=== PATIENT | female | born 1965 | race Caucasian/White ===

== ENCOUNTER 2024-07-03 05:08 | Inpatient (IN) | payer OTHER, SELFPAY ==
[2024-07-02 23:54] VITALS: BP 139/86
[2024-07-03] VITALS (12 sets, daily range): BP systolic 106–150; BP diastolic 61–94; BMI 42.2
--- NOTE | 2024-07-03 02:12 | ED.GENMED ---
Addendum entered and electronically signed by Alan Ng DO 07/05/24 09:28:
30 minutes critical care time
Original Note:
History of Present Illness
General
Chief Complaint: Breathing Problem
Source: patient
Exam Limitations: none
Time Seen by Provider: 07/03/24 01:11
Nursing documentation reviewed up to this point in time: agreed with
History of Present Illness
History of Present Illness:
59-year-old female presents with a week or 2 of shortness of breath palpitations history on exertion no chest pain no fever chills no calf pain she suffers from fibromyalgia, chronic pain at the iliotibial band, she uses marijuana, muscle relaxants,
NSAIDs as needed and Vicodin, nondrinker non-smoker her mother has A-fib patient states she lives a somewhat sedentary life, she homeschools her grandchildren, does a lot of housework, she does take hormonal therapies estrogen and progesterone
Past History
Past History
ED Past Medical History: Other (Fibromyalgia chronic pain of the iliotibial band)
ED Past Surgical History: Cholecystectomy
Social History
Tobacco: Non-smoker
Alcohol: None
Drug: Marijuana
Personal:
Living: with family
Employment: Employed
Family History
Family History: Other (Mother with arrhythmia)
Review of Systems
Review of Systems
All Other Systems: Not applicable
Constitutional: Denies fever or fatigue
EENT: Reports no symptoms
Respiratory: Reports trouble breathing; Denies cough
Cardiac: Reports palpitations; Denies chest pain or diaphoresis
ABD/GI: Reports no symptoms
: Reports no symptoms
Skin: Reports no symptoms
Neurological: Reports no symptoms
Endocrine: Reports no symptoms
Hematologic/Lymphatic: Reports no symptoms
Phy Exam
Physical Exam
Physical Exam:
Physical Exam
General: no apparent distress, not acutely ill
Neck: No jaundice
Heart: Regular
Lungs: no acute respiratory distress. clear bilaterally
Abdomen: Nontender
Neuro: alert and oriented. no focal neurological deficits
Skin: no rash
Psychiatric: well kept. interactive and cooperative
Extremities: no edema. no calf tenderness.
Scores
Heart Failure Risk
Heart Failure Risk Score: Not Applicable
Course
Orders/Labs/Results
Orders:
Orders
07/03/24 00:01
Electrocardiogram (*1) Urgent
Reason for Study: Shortness of Breath
EKG- Treatment ONCE
07/03/24 01:55
Cardiac Monitoring- Treatment ONCE
CR Chest - 2 Views Urgent
Comment:
Reason For Exam: sob
07/03/24 02:02
Complete Blood Count/With Diff Urgent
Comprehensive Metabolic Panel Urgent
D-Dimer Urgent
Magnesium Urgent
NT-proBNP Urgent
PTT Urgent
Comment: ADD ON
TSH Urgent
Troponin I Urgent
07/03/24 02:58
CT Chest PE Study Urgent
Comment:
Reason For Exam: sob ddimer 15
0.9% Sodium Chloride 1000 ml [Nss] 1,000 ml IV BOLUS
07/03/24 03:47
Add On- LAB Urgent
Tests Added?: ptt
07/03/24 04:20
Heparin 9,800 units IV NOW STA
Pharmacy Request to Place See Dose Instructions PO NOW STA
Discontinue all Active Warfarin orders?: Yes
Nursing to Place Non Medication Order As Directed
Physician Order: PTT 6 hours after initial start of Heparin infusion
07/03/24 04:30
Heparin 24300 Units/250 ml 25,000 units in 250 ml IV PER PROTOCOL
Weight to be used for heparin protocol in kilograms (kg):: 122
Protocol:: DVT/PE
PTT Goal Range to be used:: PTT 73 to 111 seconds
Order type:: Initial
INITIAL Infusion Dose (UNITS/KG/hr) & then follow protocol:: 18 units/kg/hr
Infusion Dose in UNITS/hr & then follow protocol (UNITS/hr):: 2,000
INFUSION RATE in mL/hr & then follow protocol (mL/hr):: 20
For DVT/PE algorithm, re-bolus for low PTT?: Yes
PTT less than or equal to 64 seconds:: Re-bolus 80 units/kg (max 10,000units). Increase by 500 units/hr
(+ 5mL/hr)
PTT 64.1 to 72.9 seconds:: Re-bolus 40 units/kg (max 5,000 units). Increase by 200 units/hr
(+ 2mL/hr)
PTT 73 to 111 seconds:: Target Range. No change in rate.
PTT 111.1 to 130.9 seconds:: Decrease rate by 200 units/hr (- 2 mL/hr)
PTT 131 to 199.9 seconds:: HOLD for 1 hr. Then decrease by 400 units/hr (- 4mL/hr)
PTT greater than or equal to 200 seconds:: HOLD for 2 hrs & Notify Provider. Then decrease by 500 units/hr
(- 5mL/hr)
Lab follow-up:: Each change, PTT q6h until 2 consecutive are therapeutic. Then
PTT daily.
07/03/24 04:37
Consult Interventional Radiology [IRAD CONSULT] Urgent
Consulting Provider: Emilio Villa
Was physician already notified: Yes
Reason for Consult/Procedure: PE
Acknowledgement that appropriate orders are entered: Yes
07/03/24 05:[address] See Dose Instructions IV DIRECTED
Abnormal Lab Results
07/03/24
02:02
Absolute Monos (auto) 1.0 H 10^3/uL
(0.1-0.6)
Monocytes % 12.2 H %
(1.7-9.3)
D-Dimer 15.18 H ug/mlFEU
(0.00-0.50)
Chloride 109 H mmol/L
(98-107)
Carbon Dioxide 21 L mmol/L
(22-30)
BUN 24 H mg/dl
(7-17)
Creatinine 1.3 H mg/dL
(0.6-1.0)
Glucose 121 H mg/dl
(70-99)
07/03/24 02:02
07/03/24 02:02
Vital Signs
Initial and Last Documented VS:
Initial Vital Signs
Temp Pulse Resp BP Pulse Ox
97.9 F 110 20 139/86 97
07/02/24 23:54 07/02/24 23:54 07/02/24 23:54 07/02/24 23:54 07/02/24 23:54
Last Documented Vital Signs
Temp Pulse Resp BP Pulse Ox
97.9 F 88 17 132/88 98
07/02/24 23:54 07/03/24 02:10 07/03/24 02:10 07/03/24 02:10 07/03/24 02:10
MDM/Problems Addressed
Differential Diagnosis Includes:
Arrhythmia anemia anxiety PE ACS valvular disease
MDM/Problems Addressed:
Shortness of breath
Chronic conditions affecting care:
Fibromyalgia
Acute Exacerbation and/or Progression of Chronic Illness:
Fibromyalgia
*Radiology
Radiology exam reviewed: preliminary read by ED provider
*Pulse Oximetry
Patient hypoxic: no
*EKG
Interpreted by ED Provider?: Yes
Interpretation: normal
Comparison EKG: no comparison EKG present
Heart Rate: 78
Rate: normal
Rhythm: sinus
Ischemia: non-specific ST changes
*Airworthiness Safety Inspector Interpretation
Rate: normal
Interpretation: normal
Heart Rate: 80
Rhythm: sinus
*Critical Care Note
Total Time (30-74mins, 75-104mins- exclusive of procedures): Not Applicable
Update Note
Update Note:
3 AM, labs are noted, including D-dimer will hydrate, check CTA
CT reviewed reviewed with vision radiology message sent to IR evaluate in the morning for possible lytic therapy, patient updated, reviewed with hospitalist, placed on supplemental oxygen, and unfractionated heparin
ED Attending Note
-
Portions of this chart may have been created with voice recognition software.� Occasional wrong word or��sound alike� substitutions may have occurred due to the inherent limitations of voice recognition software.
Discharge Plan
Departure
Patient Disposition: Admit
Date of Disposition: 07/03/24
Time of Disposition: 04:47
Admit to: Telemetry
Presentation/result/management discussed w/ accepting MD/DO: Hospitalist
Patient with high blood pressure during this ER visit?: No
Condition: Serious
Discharge Problem:
Pulmonary embolism
Prescriptions:
No Action
Unobtainable
0
Referrals:
Sj Lauren, [Family Provider] -
Interventions
Interventions:
*Risk Screen - Suicide Last Done: 07/02/24 23:54
*General Assessment Last Done: 07/02/24 23:54
*Neglect/Abuse Screening Last Done: 07/02/24 23:54
ED- Fall Risk Assessment Last Done: 07/03/24 02:30
ED- Cardiac Assessment Last Done: 07/03/24 02:30
ED- Pulmonary Assessment Last Done: 07/03/24 02:30
Discharge Date and Time
Print Language: YI
[2024-07-03 02:22] LABS: % Basophils 0.7 % (0-2); % Eosinophils 1.2 % (0-6); % Immature Granulocytes 0.4 % (0-0.5); % Lymphocytes 30.9 % (20.5-51.1); % Monocytes 12.2 % (1.7-9.3); % Neutrophils 54.6 % (42.2-75.2); Absolute Basophils 0.1 10^3/uL (0-0.2); Absolute Eosinophils 0.1 10^3/uL (0-0.7); Absolute Lymphocytes 2.6 10^3/uL (1.2-3.4); Absolute Neutrophils 4.6 10^3/uL (1.4-6.5); Hematocrit 41.2 % (37.0-47.0); Hemoglobin 14.2 g/dL (12.0-16.0); Mean Corp Hgb Conc. 34.5 g/dL (33.0-37.0); Mean Corpuscular Hgb 30.4 pg (27.0-31.0); Mean Corpuscular Volume 88.2 fL (81.0-99.0); Mean Platelet Volume 9.7 fL (7.4-10.4); Nucleated Red Blood Cells % 0 %; Platelet Count 202 10^3/uL (130-400); Red Blood Cell Count 4.67 10^6/uL (4.20-5.40); Red Cell Dist. Width 13.2 % (11.5-14.5); White Blood Cell Count 8.3 10^3/uL (4.8-10.8)
[2024-07-03 02:34] LABS: ALT (SGPT) 22 U/L (0-35); AST (SGOT) 21 U/L (14-36); Albumin 4.4 g/dl (3.5-5.0); Alkaline Phosphatase 84 U/L (38-126); Blood Urea Nitrogen 24 mg/dl (7-17); Calcium 9.7 mg/dl (8.4-10.2); Carbon Dioxide 21 mmol/L (22-30); Chloride 109 mmol/L (98-107); Estimated Creatinine Clearance 64 ml/min; Glucose 121 mg/dl (70-99); Magnesium 2.2 mg/dl (1.6-2.3); Potassium 4.1 mmol/L (3.5-5.1); Sodium 141 mmol/L (135-145); Total Bilirubin 0.8 mg/dl (0.2-1.3); Total Protein 7.4 g/dl (6.3-8.2); eGFR 47.66
[2024-07-03 02:40] LABS: D-Dimer 15.18 ug/mlFEU (0.00-0.50)
[2024-07-03 02:45] LABS: NT-proBNP 817 pg/ml; Troponin I 0.028 ng/ml
[2024-07-03 03:05] LABS: TSH 2.22 uIU/ml (0.47-4.68)
--- NOTE | 2024-07-03 03:20 | EDRN ---
Updated patient on labs and plan for a CT
[2024-07-03] MEDS: NSS 1000 IV ×2 (03:26→09:19)
[2024-07-03 04:14] LABS: APTT 25.9 Sec (23.4-35.0)
[2024-07-03] MEDS: HEPARIN 9800 UNITS IV (04:47)
[2024-07-03] MEDS: HEPARIN 25000 UNITS/250 ML IV ×2 (04:49→17:43)
--- NOTE | 2024-07-03 04:57 | HPS.HSE ---
Family Physician
-
Family Physician: Sj Lauren
Chief Complaint
-
SOB, Chest Pressure
History of Present Illness
Patient is a 59y F with PMH significant for fibromyalgia, obesity and chronic pain who presents to ED complaining of SOB and chest discomfort. Patient states that she noted dyspnea with minimal exertion on Tuesday. She states that this
dyspnea has progressed / persisted since that time. Today she also felt a 'fluttering' and 'pressure' in her chest. She began to have dyspnea now even at rest and presented to the ED for further evaluation.
Patient also reports significant pain in the L calf today. She reports fairly frequent calf pains / muscle aches due to her fibromyalgia - but current pain is more severe.
Patient denies any recent surgery, recent travel, etc. 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
Patient uses medical marijuana for her fibromyalgia (edible and vape) but does not smoke cigarettes.
Patient also uses hormone replacement (oral progesterone and topical / bioidentical estrogens) for menopausal symptoms.
She states that her mother has had a blood clot in the past.
Patient has been 3 times. 2 live births and 1 spontaneous .
Medical History
Past Medical History
Past Medical History: Reports Other
Additional Past Medical History:
Fibromyalgia
Chronic Pain Syndrome
Obesity
Lipomata
Past Surgical History: Reports Other
Additional Past Surgical History:
Hernia Repair
Lipoma Excisions
D&C
Social History
Tobacco: Non-smoker
Alcohol: None
Drug: Marijuana (edible and vape - daily.)
Family History
Family History: Other (Mother: DVT / PE, A-Fib Father: CVA)
Allergies / Home Medications
Allergies reflects when Allergies were last updated in [employer]
Home Medications with original date entered in [employer]
Allergy/Medication List:
Patient does not know her current medication doses. List includes:
Lyrica
Hydrocodone
Cyclobenzaprine
Naproxen
Progesterone
Topical / Bioidentical Estrogens
Review of Systems
-
History Source: Patient
A 12 point ROS was completed and negative except as noted: Yes
Constitutional: Reports Fatigue; Denies Fever or Chills
EENT: Denies Sore Throat
Respiratory: Reports Trouble Breathing; Denies Cough
Cardiac: Reports Chest Pain and Palpitations; Denies Diaphoresis or Syncope
Abdomen/GI: Denies Abdominal Pain, Nausea, Vomiting or Diarrhea
: Denies Dysuria, Frequency or Flank Pain
Musculoskeletal: Reports Muscle Pain; Denies Joint Pain or Edema
Neurological: Denies Dizzy or Headache
Psych: Reports Depression and Anxiety
Physical Exam
Vital Signs
Vital Signs
Temp Pulse Resp BP Pulse Ox
97.9 F 88 17 132/88 98
07/02/24 23:54 07/03/24 02:10 07/03/24 02:10 07/03/24 02:10 07/03/24 02:10
Physical Exam
General: Other (Morbidly obese 59y F in mild distress primarily due to anxiety.)
HEENT: Moist mucous membranes, PERRLA and Other (Thick neck. No JVD.)
Respiratory: Clear; No Wheezes, Rales or Rhonchi
Cardiac: S1/S2 and Tachycardia; No Murmur
GI: Non Tender, Non Distended and Normal Bowel Sounds
Musculoskeletal: No Clubbing, No Cyanosis and No Edema
Neuro: AO x 3
Laboratory Results
-
07/03/24 02:02
07/03/24 02:02
Laboratory Results
APTT 25.9 Sec (23.4-35.0) 07/03/24 02:02
Total Bilirubin 0.8 mg/dl (0.2-1.3) 07/03/24 02:02
AST 21 U/L (14-36) 07/03/24 02:02
ALT 22 U/L (0-35) 07/03/24 02:02
Alkaline Phosphatase 84 U/L (38-126) 07/03/24 02:02
Troponin I 0.028 ng/ml 07/03/24 02:02
Impression/Plan
-
A/P: Patient is a 59y F with PMH significant for fibromyalgia, chronic pain and obesity who presents to ED complaining of SOB and chest pressure.
Bilateral Pulmonary Emboli with RV Strain
- Admit for further evaluation and treatment.
- No obvious trigger / inciting event.
- Morbidly obese female with sedentary lifestyle and on hormone supplementation (+ daily THC use).
- Patient is hemodynamically stable without significant hypoxemia or hypotension
- IV heparin infusion.
- Check Echo today.
- Pulm and IR evaluations for additional recommendations.
- At least 24 hours of IV heparin. Transition to DOAC prior to discharge.
- Supportive care including supplemental O2, etc.
- Follow for clinical improvement.
- Check LE US for completeness.
- Patient advised that she should avoid hormone supplementation in the future.
- Would likely benefit from Heme eval as an outpatient.
Renal Insufficiency - YUE v CKD
- Suspect YUE with SCr = 1.3 and no prior values for comparison.
- IVF support for now.
- Follow for changes in SCr over next 48 hours to establish baseline.
Fibromyalgia
Chronic Pain Syndrome
- Stable. Need to clarify / confirm home meds and then resume.
Morbid Obesity due to excess calories
- Affects all aspects of care - specifically increasing risk for VTE.
- Encourage healthy diet and increased activity with goal of weight loss.
DVT Prophylaxis: On IV Heparin
Code Status: Full
--- NOTE | 2024-07-03 05:02 | EDRN ---
Dr. voss at bedside working on admission, patient started on heparin, patient needs to urinate, Dr. Voss does not want patient getting up, purwick placed, and patient able to urinate with purwick.
[2024-07-03] MEDS: MORPHINE SULFATE 2 MG IV ×3 (05:12→22:45)
--- NOTE | 2024-07-03 08:08 | PTCARENOTE ---
Patient received from evening or night nurse supervisor. Patient resting comfortably in bed. AAO but a little anxious, VSS. NSR on tele. No events noted overnight. No complaints of pain at this time. Fluids to be started and currently on a Heparin gtt @ 2000
units/hr. Patient in for ECHO this AM and US. Call felix in reach.
--- NOTE | 2024-07-03 08:45 | CARDSERVLU ---
Echocardiogram with Lumason completed after protocol screening completed. Allergies verified.
Patent IV site: ___Rt AC__
IV site flushed with 0.9% NaCl pre and post administration.
Diluted bolus method utilized to enhance visualization of ventricular gonzalez.
Total volume given: _1.0___ mL
Patient tolerated all procedures well without complications.
--- NOTE | 2024-07-03 09:17 | CON.PUL ---
Consultation
Consultation Request
Date/Time Consultation Requested: 07/03/24
Date/Time Consultation Performed: 07/03/24
Performing Provider: Lorenzo
Reason for Consultation: PE
Medical History
-
History of Present Illness:
Patient is a 59 year old F with PMH significant for fibromyalgia, obesity and chronic pain who presents to ED complaining of SOB and chest discomfort, starting last week (tue). Symptoms have progressed since that time and presented to ER.
Patient also reports significant pain in the L calf today. In ER, she was noted to have acute PE and DVT, placed on IV heparin. She has never had personal history of VTE in the past.
Patient denies any recent surgery, recent travel, etc. 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
Patient uses medical marijuana for her fibromyalgia (edible and vape) but does not smoke cigarettes. Patient also uses hormone replacement (oral progesterone and topical / bioidentical estrogens) for menopausal symptoms.
She states that her mother has had a blood clot in the past.
Denies any prior known history of lung disease otherwise.
Past Medical History
Past Medical History: Other (see list below)
Social History
Tobacco: Vaping
Alcohol: None
Drug: None
Family History
Family History: Other (VTE/AFib-mother)
Allergies / Home Medications
Allergies
Allergy/AdvReac Type Severity Reaction Status Date / Time
erythromycin base Allergy Severe Anaphylaxis Verified 07/02/24 23:53
Home Medications
�Medication �Instructions �Recorded �Confirmed �Last Taken �Type
Unobtainable 07/03/24 07/03/24 Unknown History
Review of Systems
-
History Source: Patient
All other systems: Negative unless noted
Vitals / Labs / Diagnostic Testing
Vital Signs
Temp Pulse Resp BP Pulse Ox
98.8 F 78 16 111/89 96
07/03/24 06:12 07/03/24 06:15 07/03/24 06:15 07/03/24 06:00 07/03/24 06:39
Lab Data
07/03/24 02:02
07/03/24 02:02
Laboratory Results
07/03/24
02:02
APTT 25.9
Diagnostic Testing:
Physical Exam
-
HEENT: Normocephalic, Anicteric and Moist Mucous Membranes
Cardiovascular: S1/S2 and Regular Rhythm
Respiratory: Clear and Non-Labored Respirations
GI: Soft, Non Distended and Non Tender
Neurology: Awake, Alert, Oriented and No Motor Deficits
Skin: Warm, Dry and Good Color
General: Comfortable and Other (NAD)
Assessment
-
Patient is a 59 year old F with PMH significant for fibromyalgia, obesity and chronic pain who presents to ED complaining of SOB and chest discomfort, starting last week (tue). Symptoms have progressed since that time and presented to ER.
Patient also reports significant pain in the L calf today. In ER, she was noted to have acute PE and DVT, placed on IV heparin. She has never had personal history of VTE in the past.
We are consulted for eval 07/03/24.
Acute PE/DVT
SOB/chest pain
L calf pain
Progesterone/estrogen use at home for menopausal complaints
Positive fam hx of VTE - Mother: DVT / PE, A-Fib
Conditions present RISK ASSESSMENT CONSULTANT
Fibromyalgia
Chronic pain of the iliotibial band
Cholecystectomy
Morbid obesity, BMI 42
Medical THC use
Hernia Repair
Lipoma Excisions
D&C
Plan
No oxygen was needed on admission, currently saturating >90% on RA
Currently saturating 96% on 2L, for comfort
Can wean to off as tolerated
Prior history of lung disease is not noted, denies any past history
No PFTs for review
Nonsmoker but does vape
Suspect patient has provoked VTE but there is family history
Patient denies any recent surgery, recent travel, etc. 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
Patient also uses hormone replacement (oral progesterone and topical / bioidentical estrogens) for menopausal symptoms.
BMI also a risk factor
She states that her mother has had a blood clot in the past.
CXR/CT obtained indicating large volume PE, DVT--placed on IV heparin
We discussed care plan for provoked vs unprovoked PE, await transition to OAC per team
May need genetic testing prior stopping OAC, and likely OP visit to Heme
ECHO results pending, no history of heart disease
Trops/proBNP negative
Weight loss measures recommended
Obesity likely contributing to respiratory symptoms
She has been working on weight loss, lost about 50lbs already, BMI remains >40
Continue weight loss efforts
Will need outpatient pulmonary evaluation in our office for PFTs and 6MWT
Reviewed with patient, spent additional time--she asked many questions/all questions were answered
Risk factors assessed for underlying sleep disordered breathing also noted, recommend outpatient PSG/sleep evaluation
We will follow
Diagnostic Data
Chest X-Ray: 07/03/24- No acute cardiopulmonary process.
CT Scan: 07/03/24- Positive for large volume pulmonary thromboembolus involving the bilateral distal main pulmonary arteries extending into the bilateral lobar, segmental, and subsegmental branches. Right heart strain.
US 07/03/24- Occlusive thrombus in the left peroneal and posterior tibial veins, nonocclusive thrombus in the left popliteal vein. Patient currently on anticoagulation for a pulmonary embolism.
Echo: 07/03/24- Normal biventricular size and systolic function without regional wall motion abnormality. Estimated LVEF 60-65%. Mild/moderate tricuspid regurgitation. Mildly elevated PASP. Estimated pulmonary artery pressure of 43 mmHg. Assuming a
right atrial pressure of 8 mmHg. No prior study available for comparison.
PFT's:
Reports and relevant images were personally reviewed.
Total time spent on this consultation __81__ minutes which includes review of history, physical exam, medications, laboratory data, personal review of imaging, extensive review of outpatient records, discussion with care team and respiratory therapy.
[2024-07-03 12:03] LABS: APTT 102.1 Sec (23.4-35.0)
[2024-07-03 12:19] LABS: Troponin I < 0.012 ng/ml
[2024-07-03 12:46] LABS: Glycohemoglobin (HgbA1c) 5.3 % (4.0-5.6)
[2024-07-03 14:21] LABS: TSH Reflex To Free T4 2.13 uIU/ml (0.47-4.68)
--- NOTE | 2024-07-03 14:45 | W.PN.UPDATE ---
Update Note
Progress Note Update
monitor renal function with f/uids
cont hep ggt, transition to NOAC tomorrow
ECHO: mild/moderate tricuspid regurgitation.
Outpt heme eval
--- NOTE | 2024-07-03 16:55 | CM ---
Patient seen at bedside. Patient lives with her in a 2 story home. Patient PCP is Dr. Lauren and she uses the [facility]. Patient stated that she is on MA and has been working on a disability application and her is a
professional musician. Patient has had a discussion with physicians about Eliquis and would accept coupon as well as information on resources. CM will continue to follow for discharge planning needs.
Plan; home with family; watch for VN needs and coupon for eliquis
[2024-07-03 18:17] LABS: APTT 97.5 Sec (23.4-35.0)
[2024-07-04] VITALS (10 sets, daily range): BP systolic 104–136; BP diastolic 60–98; BMI 42.3
[2024-07-04] MEDS: NSS 1000 IV (00:34)
--- NOTE | 2024-07-04 05:08 | PTCARENOTE ---
Received pt at change of shift. Pt c/o left lower leg pain 11/29. Administered PRN Morphine (see JUL). Heparin gtt running at 2000 units/hr in R AC. Pt offers no other complaints at this time. Resting in bed with call felix in reach.
[2024-07-04 05:47] LABS: Hematocrit 39.9 % (37.0-47.0); Hemoglobin 13.2 g/dL (12.0-16.0); Mean Corp Hgb Conc. 33.1 g/dL (33.0-37.0); Mean Corpuscular Hgb 30.2 pg (27.0-31.0); Mean Corpuscular Volume 91.3 fL (81.0-99.0); Mean Platelet Volume 9.5 fL (7.4-10.4); Platelet Count 189 10^3/uL (130-400); Red Blood Cell Count 4.37 10^6/uL (4.20-5.40); Red Cell Dist. Width 13.3 % (11.5-14.5); White Blood Cell Count 6.7 10^3/uL (4.8-10.8)
[2024-07-04 06:09] LABS: APTT 104.1 Sec (23.4-35.0)
[2024-07-04] MEDS: HEPARIN 25000 UNITS/250 ML IV (06:40)
[2024-07-04 06:57] LABS: Blood Urea Nitrogen 12 mg/dl (7-17); Calcium 8.9 mg/dl (8.4-10.2); Carbon Dioxide 23 mmol/L (22-30); Chloride 106 mmol/L (98-107); Estimated Creatinine Clearance 104 ml/min; Glucose 102 mg/dl (70-99); HDL Cholesterol 38 mg/dl; LDL Cholesterol, Calculated 191 mg/dl; Potassium 4.5 mmol/L (3.5-5.1); Sodium 136 mmol/L (135-145); Total Cholesterol 263 mg/dl (50-199); Triglyceride 170 mg/dl (10-149); Very Low Density Lipoprotein 34 mg/dl (0-30); eGFR > 60.00
--- NOTE | 2024-07-04 09:09 | W.PN.PUL3 ---
Today's Communication / Plan
-
Transition to OAC, discussed with care team
Wean off O2 as tolerated, home o2 eval
Encouraged OOB/PT/ambulation
Needs outpatient pulmonary and sleep FU
Pain control PRN
Otherwise, ok with d/c planning from our perspective
Assessment
-
Patient is a 59 year old F with PMH significant for fibromyalgia, obesity and chronic pain who presents to ED complaining of SOB and chest discomfort, starting last week (tue). Symptoms have progressed since that time and presented to ER.
Patient also reports significant pain in the L calf today. In ER, she was noted to have acute PE and DVT, placed on IV heparin. She has never had personal history of VTE in the past.
We are consulted for eval 07/03/24.
Acute PE/DVT
SOB/chest pain
L calf pain
Progesterone/estrogen use at home for menopausal complaints
Positive fam hx of VTE - Mother: DVT / PE, A-Fib
Conditions present LEAD PERSON
Fibromyalgia
Chronic pain of the iliotibial band
Cholecystectomy
Morbid obesity, BMI 42
Medical THC use
Hernia Repair
Lipoma Excisions
D&C
Plan
No oxygen was needed on admission, currently saturating >90% on RA
Currently saturating 96% on 2L, for comfort
Can wean to off as tolerated
Prior history of lung disease is not noted, denies any past history
No PFTs for review
Nonsmoker but does vape
Suspect patient has provoked VTE but there is family history
Patient denies any recent surgery, recent travel, etc. 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
Patient also uses hormone replacement (oral progesterone and topical / bioidentical estrogens) for menopausal symptoms.
BMI also a risk factor
She states that her mother has had a blood clot in the past.
CXR/CT obtained indicating large volume PE, DVT--placed on IV heparin
We discussed care plan for provoked vs unprovoked PE, await transition to OAC per team
May need genetic testing prior stopping OAC, and likely OP visit to Heme
ECHO results pending, no history of heart disease
Trops/proBNP negative
Weight loss measures recommended
Obesity likely contributing to respiratory symptoms
She has been working on weight loss, lost about 50lbs already, BMI remains >40
Continue weight loss efforts
Will need outpatient pulmonary evaluation in our office for PFTs and 6MWT
Reviewed with patient, spent additional time--she asked many questions/all questions were answered
Risk factors assessed for underlying sleep disordered breathing also noted, recommend outpatient PSG/sleep evaluation
Discharge planning per team
Diagnostic Data
Chest X-Ray: 07/03/24- No acute cardiopulmonary process.
CT Scan: 07/03/24- Positive for large volume pulmonary thromboembolus involving the bilateral distal main pulmonary arteries extending into the bilateral lobar, segmental, and subsegmental branches. Right heart strain.
US 07/03/24- Occlusive thrombus in the left peroneal and posterior tibial veins, nonocclusive thrombus in the left popliteal vein. Patient currently on anticoagulation for a pulmonary embolism.
Echo: 07/03/24- Normal biventricular size and systolic function without regional wall motion abnormality. Estimated LVEF 60-65%. Mild/moderate tricuspid regurgitation. Mildly elevated PASP. Estimated pulmonary artery pressure of 43 mmHg. Assuming a
right atrial pressure of 8 mmHg. No prior study available for comparison.
PFT's:
Reports and relevant images were personally reviewed.
Total time spent on this encounter __51__ minutes which includes review of history, physical exam, medications, laboratory data, personal review of imaging, extensive review of outpatient records, discussion with care team and respiratory therapy.
Subjective Data
-
Date of Service:
Date of Service: July 04, 2024
Chief Complaint: Pulmonary Follow Up
Subjective:
Doing well, slept poorly due to chest flutter complaints
No abnormalities noted on telemetry
Otherwise no new complaints
Objective Data
Data Reviewed
Vital Signs / I&O / Oxygen:
Vital Signs
Temp Pulse Resp BP Pulse Ox
97.7 F 72 20 136/65 97
07/04/24 05:44 07/04/24 06:04 07/04/24 06:04 07/04/24 06:04 07/04/24 08:49
Intake and Output
07/03/24 07/04/24 07/05/24
06:59 06:59 06:59
Intake Total 1320 / 1320
Output Total 1600 / 1600
Balance -280 / -280
SaO2 97
Nasal Cannula flow liters per 2
minute
Physical Exam
General: Comfortable and Other (NAD)
HEENT: Normocephalic, Anicteric and Moist Mucous Membranes
Cardiovascular: S1-S2 and Regular Rhythm
Respiratory: Clear and Non-Labored Respirations
GI: Soft, Non Distended and Non Tender
Neurology: Awake, Alert, Oriented and No Motor Deficits
Skin: Warm, Dry and Good Color
Labs/Micro/Reports
Lab Data
07/04/24 05:39
07/04/24 05:39
Laboratory Results
07/03/24 07/03/24 07/04/24
11:41 17:56 05:39
APTT 102.1 H 97.5 H 104.1 H
[2024-07-04] MEDS: ELIQUIS 10 MG PO (11:01)
--- NOTE | 2024-07-04 11:30 | PTCARENOTE ---
Order received to d/c heparin gtt and administer Eliquis. See MAR and intervention. Pt educated on POC.
--- NOTE | 2024-07-04 12:31 | W.PN.HOSP.TC ---
Addendum entered and electronically signed by Mikhail Waldrop MD 07/05/24 17:13:
[id number]
Original Note:
Today's Communication/Plan
-
Eliquis
Heme eval for genetic testing
pulm eval for PFTs, 6MWT
hold hormone replacement
statin
f/u pcp within 1 week
Assessment / Plan
Assessment / Plan
HEENT: Normocephalic, Anicteric and Moist Mucous Membranes
Cardiovascular: S1/S2 and Regular Rhythm
Respiratory: Clear and Non-Labored Respirations
GI: Soft, Non Distended and Non Tender
Neurology: Awake, Alert, Oriented and No Motor Deficits
Skin: Warm, Dry and Good Color
General: Comfortable and Other (NAD)
A/P: Patient is a 59y F with PMH significant for fibromyalgia, chronic pain and obesity who presents to ED complaining of SOB and chest pressure.
Bilateral Pulmonary Emboli
Occlusive thrombus in the left peroneal and posterior tibial veins, nonocclusive thrombus in the left popliteal vein
-possible provoked due to hormone replacement although obesity can also be potential trigger; fam hx of mother having clot
- educated on holding off until cleared by hematology/senior hardware design engineer
s/p hep ggt
transition o eliquis
weaned off o2
no D sign on ECHO
f/u hematology outpt for testing
appreciate pulmonary input
-bnp/trop grossly unremarkable
-F/u outpt for pfts , 6mwt
#Hyperlipidemia
-start statin
Renal Insufficiency - YUE v CKD
- Suspect YUE with SCr = 1.3 and no prior values for comparison.
- IVF support for now.
-resolved
Fibromyalgia
Chronic Pain Syndrome
- Stable. avoid NSAIDS if possible
Morbid Obesity due to excess calories
- Affects all aspects of care - specifically increasing risk for VTE.
- Encourage healthy diet and increased activity with goal of weight loss.
DVT Prophylaxis: Eliquis
Code Status: Full
More than 30 minutes spent in discharge including
Final examination of the patient
Summarizing hospital stay
Instructions for continuing care to all relevant caregivers
Preparation of discharge records, prescriptions, and referral forms
Total time spent (36 in minutes):
Anticipated Discharge: Today
Subjective/Interval History
-
Date of Service: July 04, 2024
no acute events, weaned off o2
Objective Data
-
Labs:
Laboratory Results
07/04/24
05:39
WBC 6.7
Hgb 13.2
Hct 39.9
Plt Count 189
APTT 104.1 H
Sodium 136
Potassium 4.5
Chloride 106
Carbon Dioxide 23
BUN 12
Creatinine 0.8
Glucose 102 H
Calcium 8.9
Vital Signs:
Vital Signs
Temp Pulse Resp BP Pulse Ox
97.7 F 55 14 115/72 96
07/04/24 05:44 07/04/24 10:00 07/04/24 10:00 07/04/24 10:00 07/04/24 11:12
I&O
07/03/24 07/04/24 07/05/24
06:59 06:59 06:59
Intake Total 1320 / 1320
Output Total 1600 / 1600
Balance -280 / -280
Review of Systems
-
History Source: Patient
All other systems: Not reviewed unless documented
Data Reviewed
-
Diagnostic Radiology: Report Reviewed by me
CT Scan: Report Reviewed by me
Ultrasound: Report Reviewed by me
Medical Tests (Nuc Med, Echo etc): Report Reviewed by me
Labs: Labs Reviewed by me
--- NOTE | 2024-07-04 13:07 | PTCARENOTE ---
Pt told by she is for d/c later today. Pt verbalized to this RN she does not feel she is ready for d/c after being educated on dangers of PE's throughout admission. Pt tearful and requesting pt advocate. Risk notified; awaiting call to pt's room.
Emotional support provided to pt.
--- NOTE | 2024-07-04 14:21 | W.DS.TRANS ---
DC Summary - Business Controller
-
Discharge Instructions:
Discharge Diagnosis/Procedures
Bilateral Pulmonary Emboli; DVT
Diet Low Cholesterol,Low Fat
Activity No strenuous activity
Additional Activity no strenous activity until cleared by PCP
Blood Work hematology work up
Instructions:
Stand-Alone Forms:
Changes to Home Medications: Yes
Discharge Medications:
DC Medications w/original date entered in [employer]
Biest 5mg Cream See Rx Instructions .Route .COMPLEX HRT 07/04/24
apixaban 5 mg (74 tabs) tablets in a dose pack (Eliquis DVT-PE Treat 30 Start) See Rx Instructions PO .COMPLEX #74 ea 07/04/24
cyclobenzaprine 10 mg tablet 10 mg PO TID PRN MUSCLE RELAXANT 07/04/24
hydrocodone 10 mg-acetaminophen 325 mg tablet 1 tab PO BID Pain 07/04/24
nystatin 100,000 unit/gram topical cream 1 applic topical BID PRN YEAST 07/04/24
nystatin 100,000 unit/gram topical powder (Nystop) 1 applic topical BIDPRN PRN YEAST 07/04/24
pregabalin 25 mg capsule 25 mg PO BID Pain 07/04/24
progesterone micronized 100 mg capsule 100 mg PO DAILY HRT 07/04/24
Home Medication Changes
apixaban 5 mg (74 tabs) tablets in a dose pack (Eliquis DVT-PE Treat 30 Start) See Rx Instructions PO .COMPLEX #74 ea 07/04/24
hold hormone replacement
Pending Results: No
--- NOTE | 2024-07-04 15:29 | CM ---
Addendum entered by Miriam Carter RN 07/04/24 15:37:
Noting Home O2 Assessment- no home O2 needs.
Original Note:
Patient with Dx pulmonary emboli.
CM Consult: Eliquis flores check.
Spoke with pharmacist Graham Luong; the patient has 100% coverage for Eliquis under her Medicaid plan- there is no copay. He does not have the Eliquis starter pack but does have Eliquis in stock and is able to fill the prescription.
Spoke with patient; provided update she has no copay for her Eliquis. Patient agrees with d/c today. Her daughter will provide transport home today.
Plan home today.
--- NOTE | 2024-07-04 16:19 | PTCARENOTE ---
Pt for d/c home. D/c paperwork completed and instructions reviewed with pt by flow coordination nurse. Pt d/c off unit via wheelchair.
== END 2024-07-04 16:47 | disposition home or self-care (01) | DRG 176 ==
LOC: IMU 05:08
PROVIDERS: ADMITTING PHYSICIAN Hospitalist; ATTENDING PHYSICIAN Internal Medicine; EMERGENCY PHYSICIAN Emergency Medicine; FAMILY PHYSICIAN Family Medicine; OTHER PHYSICIAN Internal Medicine
DX: I26.99 Other pulmonary embolism without acute cor pulmonale (principal); I82.452 Acute embolism and thrombosis of left peroneal vein; N17.9 Acute kidney failure, unspecified; Z68.41 Body mass index [BMI] 40.0-44.9, adult; E66.01 Morbid (severe) obesity due to excess calories; I26.94 Multiple subsegmental thrombotic pulmonary emboli without acute cor pulmonale; M79.7 Fibromyalgia; G89.4 Chronic pain syndrome; N95.1 Menopausal and female climacteric states; Z79.890 Hormone replacement therapy; Z79.899 Other long term (current) drug therapy
CPT/HCPCS: 71046; 71275; 80048; 80053; 80061; 83036; 83735; 83880; 84443; 84484; 85025; 85027; 85379; 85730; 93005; 93306; 93970; 96361; 96374; 99285; 99406; Q9950; Q9967

== ENCOUNTER → 2024-09-06 10:39 | Outpatient (REF) | payer OTHER, SELFPAY | LOC: DHSLP 10:39 | PROVIDERS: ATTENDING PHYSICIAN Internal Medicine Critical Care Medicine | DX: G47.30 Sleep apnea, unspecified (principal); R06.83 Snoring; M79.7 Fibromyalgia; E66.9 Obesity, unspecified; Z68.41 Body mass index [BMI] 40.0-44.9, adult; Z86.718 Personal history of other venous thrombosis and embolism; Z86.711 Personal history of pulmonary embolism | CPT/HCPCS: 95810 ==

== ENCOUNTER → 2025-01-10 08:21 | Outpatient (REF) | payer OTHER, SELFPAY | LOC: RAD 08:21 | PROVIDERS: ATTENDING PHYSICIAN Internal Medicine Critical Care Medicine; FAMILY PHYSICIAN Family Medicine | DX: I82.409 Acute embolism and thrombosis of unspecified deep veins of unspecified lower extremity (principal) | CPT/HCPCS: 93970 ==

== ENCOUNTER → 2025-01-11 09:20 | Outpatient (REF) | payer OTHER, SELFPAY | LOC: RAD 09:20 | PROVIDERS: ATTENDING PHYSICIAN Internal Medicine Critical Care Medicine; FAMILY PHYSICIAN Family Medicine | DX: I26.99 Other pulmonary embolism without acute cor pulmonale (principal) | CPT/HCPCS: 71275; Q9967 ==